=== PATIENT | female | born 1960 | race Caucasian/White ===

== ENCOUNTER 2017-04-02 18:14 | Emergency (ER) | payer OTHER ==
[~2017-04-02] VITALS: Ht 165.1 cm; Wt 104.3 kg
--- NOTE | ~2017-04-02 | CR63 ---
[facility] A Service of [facility] & [facility] RADIOLOGY TEXT RESULTS PATIENT: KARO BOURGEOIS LOCATION: [facility] : 62 UNIT #: [id number] AGE: [address]: Macario oLpez MD SEX: F ORDER DR: [id number] [facility] [address] [place], [place] [address] [id number] E MR#: [id number] #: [id number] NAME: KARO BOURGEOIS : 1960 SEX: F STUDY DATE/TIME: 04/02/2017 20:18 UNIT: [facility] ROOM: STUDY DESCRIPTION: CR Chest 2 View Attending Physician: Macario Lopez M.D. Ordering Physician: Jeremiah Kuo M.D. Primary Care Physician: Jamsion Nesbitt M.D. MEDICAL IMAGING REPORT This report is preliminary unless electronic signature is present EXAM Two view chest. HISTORY Left-sided chest pain radiating under left breast for 2 days. COMPARISON 06/12/2016 FINDINGS PA and lateral examination of the chest upright shows a good expansion of the parenchyma with a normal distribution of the pulmonary vascularity. There is no indication of congestion, effusion, infiltrate, tumor, or nodular density. The pleural reflections and diaphragmatic contours are normal. The cardiac silhouette and mediastinal anatomy is within normal limits. IMPRESSION Normal PA and lateral chest. Dictated by... Manda Perry M.D. THIS IS AN ELECTRONICALLY VERIFIED REPORT Manda Perry M.D. at 04/03/2017 2:04 PM Gauri TD: 04/02/2017 23:02 JOB #: [id number] MEDICAL IMAGING REPORT Page 1 of 1 COPY
[~2017-04-02 18:14] MED LIST: A/B OTIC DROPS; BIAXIN PO; BUSPAR30 MG PO; CIPRO; CLEOCIN PO; CLINDAMYCIN HC300 MG PO; COLACE PO; DIOVAN HCT 80/11 TAB; EFFEXOR XR; EFFEXOR XR150 MG PO; GABAPENTIN300 M2 PO; GLUCOPHAGE500 M1 PO; GLUCOTROL PO; HUMIBID-LA600 MG PO; IBUPROFEN PO; LEVAQUIN750 MG PO; LISINOPRIL-HCTZ1 T15 PO; LOTRISONE CREAM45 GM TOP; NORCO 10-325 TA1 TAB PO; PERCOCET7.5 PO; PRAVACHOL PO; PREDNISONE10 MG PO; PROTONIX PO; SYMBICORT INH; VICODIN PO; VICTOZA0.6 MG/0.1 SQ; [UNRECOGNIZED DRUG - SUPPLY]
[2017-04-02 19:09] LABS: BASOPHIL% 0.4 % (0-2.5); EOSINOPHIL# 0.2 X10e3 (0-0.7); HEMOGLOBIN 12.4 gm/dL (12.0-16.0); LYMPHOCYTE# 2.2 X10e3 (1.0-3.5); LYMPHOCYTE% 20.1 % (17.0-45.0); MEAN CORPUSCULAR HEMOGLOBIN 28.4 PG (28-34); MEAN CORPUSCULAR HGB CONC 32.6 g/dL (30-36); MEAN PLATELET VOLUME 8.5 FL (6.5-11.5); MONOCYTE# 0.6 X10e3 (0-1.0); MONOCYTE% 5.6 % (3.0-12.0); NEUTROPHIL# 7.8 X10e3 (1.5-7.1); NEUTROPHIL% 71.9 % (40-75); PLATELET COUNT 287 X10e3 (140-420); RED BLOOD COUNT 4.37 X10e (3.90-5.30); RED CELL DISTRIBUTION WIDTH 14.8 % (11.0-15.5); WHITE BLOOD COUNT 10.9 X10e3 (4.0-10.5)
[2017-04-02 19:11] LABS: DIFF IND NO
[2017-04-02 19:33] LABS: ALBUMIN SERUM 4.1 g/dL (3.5-5.0); BILIRUBIN, DIRECT 0.1 mg/dL (0.0-0.2); BILIRUBIN,INDIRECT 0.8 mg/dL (0.0-0.9); BILIRUBIN,TOTAL 0.9 mg/dL (0.2-2.0); BUN/CREATININE RATIO 18.57; CALCIUM SERUM 8.6 mg/dL (8.4-10.2); CREATININE SERUM 0.7 mg/dL (0.6-1.4); GLOM FILT RATE Estimated 96.9 mL/min (>60); POTASSIUM 3.3 mmol/L (3.5-5.1); PROTEIN TOTAL SERUM 7.2 g/dL (6.0-8.3)
[2017-04-02 19:52] LABS: URINE SOURCE CLEAN CATCH
[2017-04-02 20:03] LABS: URINE APPEARANCE CLEAR; URINE BILIRUBIN NEG (NEG); URINE BLOOD NEG (NEG); URINE COLOR YELLOW; URINE GLUCOSE NEG (NEG); URINE KETONE NEG (NEG); URINE LEUKOCYTE ESTERASE 2+ (NEG); URINE NITRATE NEG (NEG); URINE PROTEIN NEG (NEG); URINE SPECIFIC GRAVITY 1.014 (1.003-1.035); URINE UROBILINOGEN 0.2 MG/DL (NEG)
[2017-04-02 20:06] LABS: CULTURE INDICATED? YES; URBCS1 AUWI 0-2 /[HPF] (0-2); URINE BACTERIA AUWI NEG (NEGATIVE); URINE SQUAMOUS EPITHELIAL CELL OCC /[HPF]
== END 2017-04-02 21:15 | disposition home or self-care (01) ==
LOC: CED 18:14
PROVIDERS: Emergency Medicine
DX: R10.12 Left upper quadrant pain (principal); R07.89 Other chest pain; E11.9 Type 2 diabetes mellitus without complications; I10 Essential (primary) hypertension; F41.9 Anxiety disorder, unspecified; F32.9 Major depressive disorder, single episode, unspecified; Z90.710 Acquired absence of both cervix and uterus; Z98.51 Tubal ligation status; Z88.0 Allergy status to penicillin; Z88.2 Allergy status to sulfonamides; Z88.8 Allergy status to other drugs, medicaments and biological substances
CPT/HCPCS: 36415; 71020; 80048; 80076; 81003; 82150; 83690; 85025; 87086; 99284